=== PATIENT | female | born 1950 | race African-American/Black ===

== ENCOUNTER 2016-09-01 07:57 | Emergency (ER) | payer MEDICARE, OTHER ==
[~2016-09-01] VITALS: Ht 170.2 cm; Wt 64.5 kg
[~2016-09-01 07:57] MED LIST: AMBIEN5 MG PO; CELEXA20 MG PO; CEPHALEXIN500 MG PO; GEODON20 MG PO; GEODON40 MG PO; NAPROSYN500 MG PO; NO HOME MEDS; PERCOCET 10/31 COMBO PO; PERCOCET 5/325M1 TAB PO; PRILOSEC20 MG OR; PROZAC10 MG PO; SEROQUEL50 MG PO; SOMA350 MG PO; TORADOL PO; ULTRAM50 M1 PO
[2016-09-01] MEDS ORDERED: AMOXICILLIN500 MG PO (08:57)
[2016-09-01] MEDS ORDERED: MUCINEX D1 TAB PO (08:57)
[2016-09-01 09:00] VITALS: BP 133/88
== END 2016-09-01 09:00 | disposition home or self-care (01) ==
LOC: ED 07:57
DX: J06.9 Acute upper respiratory infection, unspecified (principal); F32.9 Major depressive disorder, single episode, unspecified; F41.9 Anxiety disorder, unspecified; F17.210 Nicotine dependence, cigarettes, uncomplicated; Z85.038 Personal history of other malignant neoplasm of large intestine

== ENCOUNTER 2016-12-17 07:11 | Day surgery (SDC) | payer MEDICARE, OTHER ==
[~2016-12-17 07:11] MED LIST changes: +AMOXICILLIN500 MG PO; +CALCI23 PO; +MUCINEX D1 TAB PO
[2016-12-17 09:03] VITALS: BP 148/91
== END 2016-12-17 09:25 | disposition home or self-care (01) ==
LOC: ENDO 07:11
PROVIDERS: ATTEND Surgery
PROC: 0DJD8ZZ Inspection of Lower Intestinal Tract, Via Natural or Artificial Opening Endoscopic (ICD-10-PCS; principal; 2016-12-17)
DX: Z12.11 Encounter for screening for malignant neoplasm of colon (principal); F17.200 Nicotine dependence, unspecified, uncomplicated; Z85.038 Personal history of other malignant neoplasm of large intestine

== ENCOUNTER 2017-07-09 14:42 | Emergency (ER) | payer MEDICARE, OTHER ==
[~2017-07-09] VITALS: Ht 171.4 cm; Wt 68.2 kg
[2017-07-09] MEDS ORDERED: PERCOCET 5/325M1 TAB PO (14:56)
[2017-07-09 15:47] LABS: HEMATOCRIT 36.3 % (37.0-47.0); HEMOGLOBIN 12.9 g/dl (12.0-16.0); IMMATURE GRANULOCYTES 0.4 % (0.0-1.0); MEAN CELL VOLUME 95.8 fL CALC (80.0-100.0); MEAN CORPUSCULAR HGB CONC 35.5 g/L CALC (32.0-36.0); NEUT# 2.79 thou/uL (2.00-7.15); RED BLOOD COUNT 3.79 mill/uL (4.20-5.60); RED CELL DISTRI WIDTH 12.6 % (11.5-15.5)
[2017-07-09] MEDS ORDERED: EC-NAPROSYN500 MG PO (15:52)
[2017-07-09] MEDS ORDERED: PAIN RELIEF325 MG PO (15:52)
[2017-07-09] MEDS ORDERED: TRAMADOL HYDROC50 MG PO (15:52)
[2017-07-09 16:05] LABS: ALBUMIN 4.2 g/dL (3.2-5.0); ALKALINE PHOSPHATASE 116 u/l (38-126); ANION GAP 19 (6-22 (CALC)); BILIRUBIN, TOTAL 0.7 mg/dL (0.0-1.4); CARBON DIOXIDE 22 mmol/l (22-30); CHLORIDE 109 mmol/l (95-108); CREATININE 0.9 mg/dL (0.5-1.0); GFR > 60 ML/MIN (>=60 (CALC)); GFR FOR AFR.AMER. > 60 ML/MIN (>=60 (CALC)); POTASSIUM 4.3 mmol/l (3.5-5.1); SGOT/AST 55 u/l (9-36); SGPT/ALT 42 u/l (11-66); SODIUM 146 mmol/l (137-146); TOTAL PROTEIN 8.5 g/dL (6.3-8.2)
[2017-07-09 16:11] LABS: BUN 11 mg/dL (8-23); BUN/CREATININE RATIO 12 (12-20 (CALC))
[2017-07-09 16:17] VITALS: BP 165/92
[2017-07-09 16:17] LABS: MYOGLOBIN 17 ng/mL (0 - 62)
== END 2017-07-09 16:15 | disposition home or self-care (01) ==
LOC: ED 14:42
PROVIDERS: Emergency Medicine
DX: R07.9 Chest pain, unspecified (principal); M79.1 Myalgia; I10 Essential (primary) hypertension; Z85.038 Personal history of other malignant neoplasm of large intestine; Z98.0 Intestinal bypass and anastomosis status; M54.9 Dorsalgia, unspecified

== ENCOUNTER 2017-09-16 13:54 | Inpatient (IN) | payer MEDICARE, OTHER ==
[2017-09-16] VITALS (7 sets, daily range): BP systolic 94–123; BP diastolic 60–73
[~2017-09-16] VITALS: Ht 172.7 cm; Wt 67.6 kg
[~2017-09-16 13:54] MED LIST changes: +EC-NAPROSYN500 MG PO; +PAIN RELIEF325 MG PO; +TRAMADOL HYDROC50 MG PO
--- NOTE | 2017-09-16 13:58 | NUR ---
PT REMOVED FROM VEHICLE AND BROUGHT DIRECTLY TO ROOM 10 VIA WHEELCHAIR. STROKE ALERT CALLED. AWARE OF PT STATUS.
--- NOTE | 2017-09-16 14:04 | NUR ---
[facility] A&O X 3, SLURRED SPEECH NOTED.
--- NOTE | 2017-09-16 14:16 | NUR ---
PATIENT REMOVED FROM VEHICLE AND STROKE ALERT CALLED. PATIENT HAS SLURRED SPEECH ASPHAISIC AND A ATAXIC GAIT. MD AT BEDSIDE FOR EVAL
--- NOTE | 2017-09-16 14:20 | NUR ---
IV INITIATED, LABS COLLECTED AND EKG COMPLETED. BGL 102 AT THIS TIME. PT A&O X 3 BUT UNABLE TO ANSWER SIMPLE QUESTIONS OR FOLLOW COMMANDS. UPON ASSESSMENT PERRLA, LUNG SOUNDS CLEAR BILATERALLY, ABD SOFT, NON TENDER UPON PALPATION AND BS ACTIVE. BILATERAL BLADDER CHANGER STRENGTH WEAK BUT EQUAL. WHILE COMPLETING [facility] STROKE SCALE PT UNABLE TO KEEP EYES OPEN AND UNABLE TO TRACK FINGER WITH EYES. SEVERE APHASIA NOTED WITH MILD DYSARTHRIA, PT CONTINUES TO REPEAT SAME WORD WHEN QUESTIONED. PT HAS REPETATIVE JERKING MOVEMENTS TO BILATERAL UPPER AND LOWER EXTREMITIES, NO DRIFT NOTED. ATAXIA NOTED IN BOTH LIMBS. MILD SENSORY LOSS TO THE LEFT SIDE NOTED. PER FAMILY PT FELL APPROX 36 HOURS PRIOR AND STARTED WITH SLURED SPEECH AND TROUBLE AMBULATING AT APPROX 2230 ON 09/15/17.
[2017-09-16 14:34] LABS: HEMATOCRIT 35.1 % (37.0-47.0); HEMOGLOBIN 11.7 g/dl (12.0-16.0); IMMATURE GRANULOCYTES 0.3 % (0.0-1.0); MEAN CELL VOLUME 99.4 fL CALC (80.0-100.0); MEAN CORPUSCULAR HGB 33.1 pG CALC (26.0-32.0); MEAN CORPUSCULAR HGB CONC 33.3 g/L CALC (32.0-36.0); NEUT# 1.45 thou/uL (2.00-7.15); RED BLOOD COUNT 3.53 mill/uL (4.20-5.60); RED CELL DISTRI WIDTH 11.7 % (11.5-15.5)
[2017-09-16 14:45] LABS: ALBUMIN 3.8 g/dL (3.2-5.0); BILIRUBIN, TOTAL 0.5 mg/dL (0.0-1.4); CREATININE 1.8 mg/dL (0.5-1.0); POTASSIUM 4.8 mmol/l (3.5-5.1); TOTAL PROTEIN 7.5 g/dL (6.3-8.2)
[2017-09-16 14:51] LABS: PROTHROMBIN TIME 11.3 SECONDS (9.0-12.5)
--- NOTE | 2017-09-16 15:05 | NUR ---
EARRINGS REMOVED FROM BOTH EARS AND PLACED IN URINE CUP ALONG WITH NECKLACE. 1 EARRING IN RIGHT EAR UNABLE TO BE REMOVED. WITH PERMISSION FROM PATIENT EARRING WAS CUT OFF AND PLACED IN SAME URINE CUP. CUP PLACED WITH PT BELONGINGS.
--- NOTE | 2017-09-16 15:15 | NUR ---
PT TAKEN TO MRI VIA WHEELCHAIR.
--- NOTE | 2017-09-16 15:30 | NUR ---
FAMILY IN WAITING ROOM INFORMED OF PLAN OF CARE AND WAIT TIME. PER ROSIO, SISTER IN LAW SHE WILL BE BACK WITHIN THE HOUR. PHONE NUMBER TO CONTACT IS [phone].
[2017-09-16 15:48] LABS: URINE BILIRUBIN - DIPSTICK NEGATIVE (NEGATIVE); URINE BLOOD DIPSTICK TRACE-LYSED (NEGATIVE); URINE COLOR YELLOW; URINE GLUCOSE - DIPSTICK NEGATIVE (NEGATIVE); URINE KETONE NEGATIVE (NEGATIVE); URINE LEUK ESTERASE NEGATIVE (NEGATIVE); URINE NITRITE - DIPSTICK NEGATIVE (Negative); URINE PH 5.5 (4.5-8.0); URINE PROTEIN - DIPSTICK TRACE mg/dL (NEG-TRACE); URINE SPECIFIC GRAVITY 1.015; URINE UROBILINOGEN - DIPSTICK 0.2 E.U./dL (0.2)
[2017-09-16 15:50] LABS: URINE CLARITY CLEAR
[2017-09-16 15:51] LABS: BARBITURATES NEGATIVE (NEGATIVE); COCAINE NEGATIVE (NEGATIVE); METHADONE NEGATIVE (NEGATIVE); TETRAHYDROCANNABIONOL NEGATIVE (NEGATIVE); TRICYLIC ANTIDEPRESSANTS NEGATIVE (NEGATIVE)
[2017-09-16 15:53] LABS: OXCYCODONE POSITIVE (NEGATIVE)
[2017-09-16] MEDS ORDERED: MOVANTIK25 MG PO (16:04)
--- NOTE | 2017-09-16 16:15 | NUR ---
PT RETURNED FROM MRI VIA WHEELCHAIR. SHUFFLING, UNSTEADY GAIT NOTED. PRIOR ASSESSMENT UNCHANGED AT THIS TIME.
[2017-09-16] MEDS ORDERED: OXYCODONE HCL15 MG PO (16:17)
--- NOTE | 2017-09-16 16:35 | NUR ---
PT RESTING IN STRETCHER WITH EYES CLOSED AT THIS TIME. PT AWAKENS TO VERBAL STIMULI. PT DENIES ANY NEEDS AT THIS TIME. CALL LUCIO WITHIN REACH.
--- NOTE | 2017-09-16 17:10 | NUR ---
FAMILY AT BEDSIDE. MD IN ROOM TO DISCUSS RESULTS AND PROBABLE ADMISSION.
--- NOTE | 2017-09-16 17:48 | NUR ---
CALL PLACED TO ICU, NURSE WILL CALL BACK FOR REPORT.
--- NOTE | 2017-09-16 18:02 | NUR ---
REPORT CALLED TO NICKIE PORTER.
--- NOTE | 2017-09-16 18:15 | NUR ---
PT TALKING AND LAUGHING WITH FRIEND IN ROOM AND REQUESTING SOMETHING TO EAT. PT SPEECH IS CLEAR AT THIS TIME.
--- NOTE | 2017-09-16 18:30 | NUR ---
Admission Note Report Given to: NICKIE PORTER Transported by: Wheelchair X Stretcher Transported with: X Nurse Transporter X Patent IV O2 X Neurology Nurse PT TO ICU 4 ON DIRECTOR INSTRUMENTATION IN STABLE CONDITION.
--- NOTE | 2017-09-16 18:37 | NUR ---
pt arrived to ICU bed 4 via stretcher accompanied by Shagufta Villalpando RN in stable condition; talkative; able to ambulate with shuffle gait to standing scale; weight obtained; settled in bed; monitoring attachments explained and connect; dinner provided; admission assessment to be completed per next shift; report given to Wanda Vergara RN
[2017-09-16 18:44] LABS: CREATININE 1.5 mg/dL (0.5-1.0); POTASSIUM 4.7 mmol/l (3.5-5.1)
--- NOTE | 2017-09-16 18:55 | NUR ---
REPORT FROM Kaden MARTINEZ RN. ASSUMED PT. CARE.
--- NOTE | 2017-09-16 19:35 | NUR ---
FAMILY AT BEDSIDE AT THIS TIME. PT. STABLE ON THE MONITOR. PROVIDED WITH FOOD AND FLUIDS AT THIS TIME. NO SWALLOWING DIFFICULTIES NOTED. SPEECH IS SLURRED, BUT UNDERSTANDABLE. INTERMITTENT DIFFICULTY FINDING WORDS. NO OTHER DEFICITS NOTED. SPASTIC ARM AND LEG MOVEMENTS NOTED, BUT NO WEAKNESS.
--- NOTE | 2017-09-16 20:37 | NUR ---
ADMISSION ASSESSMENT COMPLETE. PT. WITH INTERMITTENT EPISODES OF DIFFICULTY FINDING WORDS. NO OTHER NEURO DEFICITS NOTED. NO UNILATERAL WEAKESS. MCDANIEL. JORGE, PINPOINT. RESPS EVEN AND UNLABORED. SPASTIC ARM AND LEG MOVEMENTS NOTED.
--- NOTE | 2017-09-16 21:42 | NUR ---
PT. ASSISTED TO BSC. APPROX 150 CC OF YELLOW URINE OUT AT THIS TIME. IV FLUIDS INFUSING WITHOUT SX OF INFILTRATION OR EXTRAVASATION. LIGHTS DIMMED FOR COMFORT. DENIES OTHER COMPLAINTS OR NEED. NEURO STATUS REMAINS UNCHANGED. VSS.
[2017-09-17] VITALS (13 sets, daily range): BP systolic 110–175; BP diastolic 64–92
--- NOTE | 2017-09-17 00:12 | NUR ---
PT. REMAINS AFEBRILE. EASILY AROUSABLE TO LIGHT VERBAL STIMULI. HR AND BP STABLE. IV FLUIDS CONTINUE TO INFUSE ORDERED. MCDANIEL. REMAINS ORIENTED X 3 AT THIS TIME. REMAINS WITH SLURRED SPEECH, BUT NO OTHER NEURO DEFICITS NOTED.
--- NOTE | 2017-09-17 01:45 | NUR ---
PT. RESTING IN BED IN NO DISTRESS. RESPS EVEN AND UNLABORED. VSS. HP AND BP REMAIN STABLE.
--- NOTE | 2017-09-17 03:30 | NUR ---
PT. RESTING IN BED IN NO DISTRESS. REMAINS EASILY AROUSABLE. CALL LIGHT REMAINS WITHIN REACH. VSS. WILL CONTINUE TO MONITOR.
--- NOTE | 2017-09-17 04:15 | NUR ---
PT. REMAINS AFEBRILE. EASILY AROUSABLE. ORIENTED X 3. MCDANIEL. SPEECH SEEMS SLIGHTLY IMPROVED. NO OTHER NEURO DEFICITS NOTED. CALL LIGHT REMAINS WITHIN REACH. WILL CONTINUE TO MONITOR.
--- NOTE | 2017-09-17 06:32 | NUR ---
PT. CONTINUES TO REST WITH EYES CLOSED IN NO DISTRESS. CALL LIGHT REMAINS WITHIN REACH. VSS. SR IN THE 60'S. BP STABLE. RESPS REMAIN EVEN AND UNLABORED. DENIES COMPLAINTS OR NEEDS. IV FLUIDS CONTINUE TO INFUSE PER MD ORDERS. NO SX OF INFILTRATION.
--- NOTE | 2017-09-17 07:15 | NUR ---
PT ALERT AND ABLE TO MAKE NEEDS KNOWN. SR ON TELELMETRY. LS CLEAR THROUGHOUT. PT ASSISTED TO BSC 300 OP OF CLEAR YELLOW URINE.WEAK, UNSTEADY GAIT NOTED. PT STATES, DIZZINESS. PT DENIES CHEST PAIN, SOB OR DISTRESS AT THIS TIME. IVF INFUSING TO 20G RFA, NO S/S OF INFILTRATION OR REDNESS NOTED AT THIS TIME. PEACE'S INTACT TO BLE. CALL LIGHT IN REACH WILL MONITOR.
--- NOTE | 2017-09-17 08:00 | NUR ---
BREAKFAST TRAY SET UP.
--- NOTE | 2017-09-17 08:30 | NUR ---
PT ASSISTED TO BSC 300 OP CLEAR YELLOW URINE. CALL LIGHT IN REACH, WILL MONITOR
--- NOTE | 2017-09-17 10:00 | NUR ---
FAMILY AT THE BEDSIDE, PT STATES, SINUS PRESSURE WITH RUNNY NOSE. CALL LIGHT IN REACH, WILL PASS ON TO DR. LLANOS.
--- NOTE | 2017-09-17 10:55 | NUR ---
DR. LLANOS AT BEDSIDE FOR ASSESSMENT AND TO DISCUSS PLAN OF CARE.
--- NOTE | 2017-09-17 12:00 | NUR ---
PT RESTING IN BED, FAMILY REMAINS AT THIS BEDSIDE. PT MEDICATED FOR PAIN "6" ON 1-10 SCALE FOR HEAD AND BACK PAIN PER ORDERS. PT DENIES CHEST PAIN OR SOB AT THIS TIME. GOOD APPETITE NOTED. IVF CONTINUE TO RFA, NO S/S OF INFILTRATION NOTED AT THIS TIME. SR ON TELEMETRY. CALL LIGHT IN REACH, WILL MONITOR
[2017-09-17] MEDS ORDERED: PROZAC10 MG PO (12:34)
--- NOTE | 2017-09-17 12:45 | NUR ---
PT STATES RELIEF FOR MEDICATION OF PAIN. FAMILY LEFT UNIT. PT RESTING IN BED, AFEBRILE, SR ON TELEMETRY. IVF CONTINUE TO RFA, NO S/S OF INFILTRATION AT SITE. CALL LIGHT IN REACH, WILL MONITOR.
--- NOTE | 2017-09-17 14:00 | NUR ---
PT RESTING IN BED WITH EYES CLOSED, PT OFFERS NO COMPLAINTS AT THIS TIME. CALL LIGHT IN REACH, WILL MONITOR.
[2017-09-17] MEDS ORDERED: LISINOPRIL10 M1 PO (14:27)
[2017-09-17] MEDS ORDERED: SEROQUEL XR300 MG PO (14:36)
--- NOTE | 2017-09-17 16:00 | NUR ---
PT FAMILY ON UNIT, BRINGING MEDS. ALL MEDICINE COUNTED AT THE BEDSIDE WITH PT AND WITNESSED COUNT. DR. LLANOS NOTIFIED AND REVIEWED MEDS, PHARMACY NOTIFIED. PT RESTING IN BED, CALL LIGHT IN REACH, WILL MONITOR
--- NOTE | 2017-09-17 18:00 | NUR ---
PT RESTING IN BED, AFEBRILE. SR ON TELEMETRY. PT DENIES CHEST PAIN, SOB OR DISTRESS AT THIS TIME. CALL LIGHT IN REACH, WILL MONITOR
--- NOTE | 2017-09-17 18:50 | NUR ---
REPORT FROM Sabas GUARDADO RN. ASSUMED PT. CARE.
--- NOTE | 2017-09-17 19:35 | NUR ---
PT. ASSISTED TO BSC. REPORTS ITCHING AT THIS TIME. MD MADE AWARE AND NEW ORDERS RECEIVED. RESPS EVEN AND UNLABORED. CALL LIGHT WITHIN REACH. DENIES COMPLAINTS OF PAIN OR NEED AT THIS TIME. NO NEURO DEFICITS NOTED. SPEECH REMAINS SLIGHTLY SLURRED, BUT IMPROVED. LUNGS CTA. NO EDEMA NOTED. BOWEL SOUNDS X 4. REPORTS NO BM TODAY.
--- NOTE | 2017-09-17 21:00 | NUR ---
PT. ASSISTED TO BSC. C/O MILD NAUSEA AT THIS TIME. MD MADE AWARE, NEW ORDERS RECIEVED. WILL MEDICATE ORDERED. MINIMAL ASSIST AT THIS TIME. CALL LIGHT REMAINS WITHIN REACH. WILL CONITNUE TO ASSESS.
--- NOTE | 2017-09-17 22:21 | NUR ---
PT. REPORTS NAUSEA IMPROVED AT THIS TIME. ASSISTED TO BSC. WILL CONTINUE TO MONITOR. REMAINS ORIETNED X 3 WITHOUT NEURO DEFICITS. DENIES PAIN.
[2017-09-18] VITALS (7 sets, daily range): BP systolic 116–175; BP diastolic 61–96
--- NOTE | 2017-09-18 00:20 | NUR ---
PT. AWAKE, ALERT, ORIENTED X 3. NO NEURO DEFICITS NOTED. WATCHING TELEVISION AT THIS TIME. STATES HER NAUSEA HAS IMPROVED. DENIES COMPLAINTS OR NEEDS AT THIS TIME. WILL CONTINUE TO MONITOR.
--- NOTE | 2017-09-18 01:41 | NUR ---
PT. RESTING ON SIDE IN NO DISTRESS. EYES CLOSED. IV FLUIDS INFUSING WITHOUT SX OF INFILTRATION OR EXTRAVASATION. VSS. CALL LIGHT REMAINS WITHIN REACH. WILL CONTINUE TO MONITOR.
--- NOTE | 2017-09-18 03:30 | NUR ---
PT. RESTING IN BED WITH EYES CLOSED. RESPS EVEN AND UNLABORED. VSS. BP SLIGHTLY ELEVATED WILL CONTINUE TO MONITOR. CALL LIGHT REMAINS WITHIN REACH.
--- NOTE | 2017-09-18 05:08 | NUR ---
LAB AT BEDSIDE AT THIS TIME. PT. ASSISTED TO BSC. DENIES COMPLAINTS OF PAIN OR NEED. VSS. AWAKE, ALERT, ORIENTED X 3. SKIN WARM AND DRY. REMAINS AFEBRILE. NO NEURO DEFICITS NOTED. SPEECH MUCH MORE CLEAR. WILL CONTINUE TO MONITOR.
[2017-09-18 05:28] LABS: HEMATOCRIT 33.3 % (37.0-47.0); HEMOGLOBIN 11.2 g/dl (12.0-16.0); IMMATURE GRANULOCYTES 0.3 % (0.0-1.0); MEAN CELL VOLUME 98.8 fL CALC (80.0-100.0); MEAN CORPUSCULAR HGB 33.2 pG CALC (26.0-32.0); MEAN CORPUSCULAR HGB CONC 33.6 g/L CALC (32.0-36.0); NEUT# 1.18 thou/uL (2.00-7.15); RED BLOOD COUNT 3.37 mill/uL (4.20-5.60); RED CELL DISTRI WIDTH 11.4 % (11.5-15.5)
[2017-09-18 05:57] LABS: ANION GAP 7 (6-22 (CALC)); BUN 9 mg/dL (8-23); BUN/CREATININE RATIO 14 (12-20 (CALC)); CARBON DIOXIDE 25 mmol/l (22-30); CHLORIDE 112 mmol/l (95-108); CREATININE 0.7 mg/dL (0.5-1.0); GFR > 60 ML/MIN (>=60 (CALC)); GFR FOR AFR.AMER. > 60 ML/MIN (>=60 (CALC)); POTASSIUM 4.7 mmol/l (3.5-5.1); SODIUM 139 mmol/l (137-146)
--- NOTE | 2017-09-18 07:05 | NUR ---
PT LAYING IN BED WATCHING TV, PT VERBALIZES NO COMPLAINTS, A & O X3, PERRL, HR 58, RESP. 18, BP 158/83, O2 97% ON RA, LUNG SOUNDS CLEAR IN ALL DEMPSEY, 20G RFA IV WITH IV FLUIDS INFUSING AT PRESCRIBED RATE, NO REDNESS OR DRAINAGE AT SITE, STRONG RADIAL & PEDAL PULSES, ACTIVE BOWEL SOUNDS, AM ASSESSMENT COMPLETE, SEE INTERVENTIONS, SAFETY MEASURES REINFORCED, CALL LUCIO WITHIN REACH
--- NOTE | 2017-09-18 07:30 | NUR ---
SETUP ASSISTANCE PROVIDED WITH [facility]
--- NOTE | 2017-09-18 08:50 | NUR ---
DR LLANOS AT BEDSIDE DISCUSSING PLAN OF CARE AND DISCHARGE
--- NOTE | 2017-09-18 10:35 | NUR ---
PT LAYING IN BED WATCHING TV, VERBALIZES NO COMPLAINTS, REMINDED TO CALL FOR ASSISTANCE, CALL LUCIO WITHIN REACH
--- NOTE | 2017-09-18 11:05 | NUR ---
PT ASSISTED TO THE BSC AND BACK TO BED, PT AMBULATES WITH A SLOW STEADY GAIT, CALL LUCIO WITHIN REACH
[2017-09-18] MEDS ORDERED: AMOX/K CLAV875 M1 PO (12:57)
[2017-09-18] MEDS ORDERED: MEDDOSEPAK PO (12:57)
[2017-09-18] MEDS ORDERED: FLONASE AL50 MCG/ACT NAB (12:57)
--- NOTE | 2017-09-18 14:10 | NUR ---
20G RFA IV REMOVED CATH TIP INTACT
--- NOTE | 2017-09-18 15:10 | NUR ---
FAMILY AT BEDSIDE
--- NOTE | 2017-09-18 15:44 | NUR ---
DR LLANOS TALKING TO PT'S FAMILY WITH PT'S PERMISSION
--- NOTE | 2017-09-18 15:55 | NUR ---
Discharge instructions given. Patient verbalizes understanding of same. Discharged in stable condition via Wheelchair to Home with family. All belongings sent with pt.
== END 2017-09-18 15:55 | disposition home or self-care (01) | DRG 917 ==
LOC: ED 13:54 → ED-I 17:05 → ED 17:14 → ICU 17:15
PROVIDERS: Emergency Medicine; ADMIT Internal Medicine; ATTEND Internal Medicine
PROC: 3E0234Z Introduction of Serum, Toxoid and Vaccine into Muscle, Percutaneous Approach (ICD-10-PCS; principal; 2017-09-18)
DX: T40.2X1A Poisoning by other opioids, accidental (unintentional), initial encounter (principal); G92 Toxic encephalopathy; N17.9 Acute kidney failure, unspecified; T43.591A Poisoning by other antipsychotics and neuroleptics, accidental (unintentional), initial encounter; I10 Essential (primary) hypertension; E78.00 Pure hypercholesterolemia, unspecified; F17.210 Nicotine dependence, cigarettes, uncomplicated; F31.9 Bipolar disorder, unspecified; J32.9 Chronic sinusitis, unspecified; G89.29 Other chronic pain; M54.5 Low back pain; Z23 Encounter for immunization; Z85.038 Personal history of other malignant neoplasm of large intestine; Z91.81 History of falling
CPT/HCPCS: A9579

== ENCOUNTER 2018-02-11 12:01 | Emergency (ER) | payer MEDICARE, OTHER ==
[~2018-02-11] VITALS: Ht 172.7 cm; Wt 65.0 kg
[~2018-02-11 12:01] MED LIST changes: +AMOX/K CLAV875 M1 PO; +FLONASE AL50 MCG/ACT NAB; +LISINOPRIL10 M1 PO; +MEDDOSEPAK PO; +MOVANTIK25 MG PO; +OXYCODONE HCL15 MG PO; +SEROQUEL XR300 MG PO
[2018-02-11] MEDS ORDERED: QUETIAPINE FUM200 MG PO (12:34)
[2018-02-11] MEDS ORDERED: FLUOXETINE HCL40 MG PO (12:34)
[2018-02-11] MEDS ORDERED: ATORVASTATIN CA20 MG PO (12:35)
[2018-02-11] MEDS ORDERED: ZOLPIDEM TARTRA10 MG PO (12:36)
[2018-02-11 13:24] VITALS: BP 139/88
[2018-02-11] MEDS ORDERED: IBUPROFEN600 MG PO (13:26)
== END 2018-02-11 13:29 | disposition home or self-care (01) ==
LOC: ED 12:01
DX: S20.212A Contusion of left front wall of thorax, initial encounter (principal); W07.XXXA Fall from chair, initial encounter; Y92.009 Unspecified place in unspecified non-institutional (private) residence as the place of occurrence of the external cause; F17.210 Nicotine dependence, cigarettes, uncomplicated

== ENCOUNTER 2018-02-18 04:48 | Emergency (ER) | payer MEDICARE, OTHER ==
[~2018-02-18] VITALS: Ht 172.7 cm; Wt 65.0 kg
[~2018-02-18 04:48] MED LIST changes: +ATORVASTATIN CA20 MG PO; +FLUOXETINE HCL40 MG PO; +IBUPROFEN600 MG PO; +QUETIAPINE FUM200 MG PO; +ZOLPIDEM TARTRA10 MG PO
[2018-02-18 05:30] LABS: IMMATURE GRANULOCYTES 0.4 % (0.0-5.0); MEAN CELL VOLUME 99.4 fL CALC (80.0-100.0); MEAN CORPUSCULAR HGB 35.3 pG CALC (26.0-32.0); MEAN CORPUSCULAR HGB CONC 35.5 g/L CALC (32.0-36.0); NEUT# 3.31 thou/uL (2.00-7.15); RED BLOOD COUNT 3.29 mill/uL (4.20-5.60); RED CELL DISTRI WIDTH 12.3 % (11.5-15.5)
[2018-02-18 05:41] LABS: ALBUMIN 3.8 g/dL (3.2-5.0); ALKALINE PHOSPHATASE 93 u/l (38-126); BILIRUBIN, TOTAL 0.3 mg/dL (0.0-1.4); BUN 20 mg/dL (8-23); BUN/CREATININE RATIO 23 (12-20 (CALC)); CARBON DIOXIDE 25 mmol/l (22-30); CHLORIDE 96 mmol/l (95-108); CREATININE 0.9 mg/dL (0.5-1.0); ETHYL ALCOHOL 0 mg/dl (0-30); GFR > 60 ML/MIN (>=60 (CALC)); GFR FOR AFR.AMER. > 60 ML/MIN (>=60 (CALC)); HEMATOCRIT 32.7 % (37.0-47.0); HEMOGLOBIN 11.6 g/dl (12.0-16.0); POTASSIUM 4.6 mmol/l (3.5-5.1); SGOT/AST 30 u/l (9-36); TOTAL PROTEIN 7.4 g/dL (6.3-8.2)
[2018-02-18 05:44] LABS: ANION GAP 14 (6-22 (CALC)); SODIUM 130 mmol/l (137-146)
[2018-02-18 05:51] LABS: MYOGLOBIN 19 ng/mL (0 - 62)
[2018-02-18 06:21] LABS: PROTHROMBIN TIME 10.6 SECONDS (9.0-12.5)
[2018-02-18 08:15] LABS: URINE BILIRUBIN - DIPSTICK NEGATIVE (NEGATIVE); URINE BLOOD DIPSTICK NEGATIVE (NEGATIVE); URINE COLOR YELLOW; URINE GLUCOSE - DIPSTICK NEGATIVE (NEGATIVE); URINE KETONE NEGATIVE (NEGATIVE); URINE LEUK ESTERASE NEGATIVE (NEGATIVE); URINE NITRITE - DIPSTICK NEGATIVE (Negative); URINE PH 6.5 (4.5-8.0); URINE PROTEIN - DIPSTICK NEGATIVE (NEG-TRACE); URINE UROBILINOGEN - DIPSTICK 0.2 E.U./dL (0.2)
[2018-02-18 08:16] LABS: URINE CLARITY CLEAR
[2018-02-18 08:21] LABS: BARBITURATES NEGATIVE (NEGATIVE); COCAINE NEGATIVE (NEGATIVE); METHADONE NEGATIVE (NEGATIVE); TETRAHYDROCANNABIONOL NEGATIVE (NEGATIVE); TRICYLIC ANTIDEPRESSANTS POSITIVE (NEGATIVE)
[2018-02-18 08:22] LABS: OXCYCODONE NEGATIVE (NEGATIVE)
[2018-02-18 09:24] VITALS: BP 151/76
== END 2018-02-18 09:55 | disposition short-term general hospital (02) ==
LOC: ED 04:48
PROVIDERS: Emergency Medicine
DX: R41.82 Altered mental status, unspecified (principal); F17.200 Nicotine dependence, unspecified, uncomplicated; I10 Essential (primary) hypertension; Z85.038 Personal history of other malignant neoplasm of large intestine; R25.8 Other abnormal involuntary movements; R29.703 NIHSS score 3; E78.00 Pure hypercholesterolemia, unspecified

== ENCOUNTER 2018-03-07 13:30 | Emergency (ER) | payer MEDICARE, OTHER ==
[~2018-03-07] VITALS: Ht 172.7 cm; Wt 65.0 kg
[2018-03-07 14:06] LABS: HEMATOCRIT 34.2 % (37.0-47.0); HEMOGLOBIN 11.5 g/dl (12.0-16.0); IMMATURE GRANULOCYTES 0.6 % (0.0-5.0); MEAN CELL VOLUME 104.3 fL CALC (80.0-100.0); MEAN CORPUSCULAR HGB 35.1 pG CALC (26.0-32.0); MEAN CORPUSCULAR HGB CONC 33.6 g/L CALC (32.0-36.0); NEUT# 4.74 thou/uL (2.00-7.15); RED BLOOD COUNT 3.28 mill/uL (4.20-5.60)
[2018-03-07 14:23] LABS: ALBUMIN 3.7 g/dL (3.2-5.0); ALKALINE PHOSPHATASE 93 u/l (38-126); BILIRUBIN, TOTAL 0.5 mg/dL (0.0-1.4); BUN 60 mg/dL (8-23); CARBON DIOXIDE 21 mmol/l (22-30); CHLORIDE 104 mmol/l (95-108); MAGNESIUM 1.8 mg/dL (1.6-2.3); POTASSIUM 4.8 mmol/l (3.5-5.1); SGOT/AST 44 u/l (9-36); TOTAL PROTEIN 7.2 g/dL (6.3-8.2)
[2018-03-07 14:28] LABS: ANION GAP 21 (6-22 (CALC)); BUN/CREATININE RATIO 7 (12-20 (CALC)); ETHYL ALCOHOL 0 mg/dl (0-30); GFR 5 ML/MIN (>=60 (CALC)); GFR FOR AFR.AMER. 6 ML/MIN (>=60 (CALC)); SODIUM 141 mmol/l (137-146)
[2018-03-07 14:29] LABS: CREATININE 8.4 mg/dL (0.5-1.0)
[2018-03-07 15:37] LABS: URINE BLOOD DIPSTICK MODERATE (NEGATIVE); URINE COLOR YELLOW; URINE GLUCOSE - DIPSTICK NEGATIVE (NEGATIVE); URINE KETONE TRACE mg/dL (NEGATIVE); URINE LEUK ESTERASE NEGATIVE (NEGATIVE); URINE NITRITE - DIPSTICK NEGATIVE (Negative); URINE PROTEIN - DIPSTICK 30 mg/dL (NEG-TRACE); URINE SPECIFIC GRAVITY >=1.030; URINE UROBILINOGEN - DIPSTICK 0.2 E.U./dL (0.2)
[2018-03-07 15:40] LABS: URINE BILIRUBIN - DIPSTICK SMALL (NEGATIVE); URINE CLARITY CLEAR
[2018-03-07 15:59] LABS: COCAINE POSITIVE (NEGATIVE); METHADONE NEGATIVE (NEGATIVE); TETRAHYDROCANNABIONOL NEGATIVE (NEGATIVE); URINE SQUAMOUS EPITHELIAL CELL FEW EPI/hpf (0-FEW); URINE YEAST MANY hpf
[2018-03-07 16:00] LABS: BARBITURATES NEGATIVE (NEGATIVE); OXCYCODONE POSITIVE (NEGATIVE); TRICYLIC ANTIDEPRESSANTS POSITIVE (NEGATIVE)
[2018-03-07 20:13] VITALS: BP 111/58
== END 2018-03-07 20:20 | disposition short-term general hospital (02) ==
LOC: ED 13:30
PROC: 0T9B70Z Drainage of Bladder with Drainage Device, Via Natural or Artificial Opening (ICD-10-PCS; principal; 2018-03-07)
DX: R41.82 Altered mental status, unspecified (principal); T40.601A Poisoning by unspecified narcotics, accidental (unintentional), initial encounter; T40.2X1A Poisoning by other opioids, accidental (unintentional), initial encounter; T43.011A Poisoning by tricyclic antidepressants, accidental (unintentional), initial encounter; T40.5X1A Poisoning by cocaine, accidental (unintentional), initial encounter; N17.9 Acute kidney failure, unspecified

== ENCOUNTER 2018-07-08 16:02 | Emergency (ER) | payer MEDICARE, OTHER ==
[~2018-07-08] VITALS: Ht 172.7 cm; Wt 68.2 kg
[2018-07-08] MEDS ORDERED: LISINOPRIL10 M1 PO (17:26)
[2018-07-08] MEDS ORDERED: QUETIAPINE FUM200 MG PO (17:26)
[2018-07-08] MEDS ORDERED: ZOLPIDEM TARTRA10 MG PO (17:26)
[2018-07-08] MEDS ORDERED: CLONAZEPAM0.5 M1 PO (17:27)
[2018-07-08] MEDS ORDERED: FLUOXETINE HCL40 MG PO (17:27)
[2018-07-08] MEDS ORDERED: CARVEDILOL6.25 MG PO (17:27)
[2018-07-08] MEDS ORDERED: ATORVASTATIN CA20 MG PO (17:28)
[2018-07-08 17:30] VITALS: BP 137/78
== END 2018-07-08 17:30 | disposition home or self-care (01) ==
LOC: ED 16:02
DX: S82.62XA Displaced fracture of lateral malleolus of left fibula, initial encounter for closed fracture (principal); S93.432A Sprain of tibiofibular ligament of left ankle, initial encounter; M77.32 Calcaneal spur, left foot

== ENCOUNTER 2018-07-27 22:55 | Emergency (ER) | payer MEDICARE, OTHER ==
[~2018-07-27 22:55] MED LIST changes: +CARVEDILOL6.25 MG PO; +CLONAZEPAM0.5 M1 PO
== END 2018-07-27 23:00 | disposition expired ==
LOC: ED 22:55
PROC: 5A12012 Performance of Cardiac Output, Single, Manual (ICD-10-PCS; principal; 2018-07-27)
DX: T17.920A Food in respiratory tract, part unspecified causing asphyxiation, initial encounter (principal); I46.8 Cardiac arrest due to other underlying condition; I10 Essential (primary) hypertension